=== PATIENT | male | born 1950 | race Caucasian/White ===

== ENCOUNTER 2023-05-20 23:49 | Emergency (ER) | payer OTHER ==
[2023-05-21] MEDS ORDERED: OXYMETAZOLINE HCL 0.05% 15ML NAS ONE (00:04)
[2023-05-21] MEDS ORDERED: HYDROCODONE/APAP 7.5/325 MG TAB ONE (00:18)
[2023-05-21] MEDS ORDERED: FENTANYL CITR 100 MCG/2 ML ONE (01:02)
[2023-05-21] MEDS ORDERED: SILVER NITRATE 1 APPL TOP ONE (01:44)
--- NOTE | 2023-05-21 03:43 | ER ---
Nurse's Notes [facility] Name: Malachi Diaz Age: 72 yrs Sex: Male : 1950 Arrival Date: 05/20/2023 Time: 23:49 Bed 7 Private MD: Diagnosis: Fall on same level, unspecified;Epistaxis Presentation: 05/20 00:10 Chief complaint: Patient states: I tripped going into the house and hit my nose on the vc1 door handle. I tried to get it to stop bleeding but it has been bleeding for about an hour and a half. Coronavirus screen: Vaccine status: Patient reports receiving the 2nd dose of the covid vaccine. Client denies travel out of the [place] in the last 14 days. At this time, the client does not indicate any symptoms associated with coronavirus-19. Ebola Screen: Patient negative for fever greater than or equal to 101.5 degrees Fahrenheit, and additional compatible Ebola Virus Disease symptoms Patient denies exposure to infectious person. Patient denies travel to an Ebola-affected area in the 21 days before illness onset. No symptoms or risks identified at this time. Initial Sepsis Screen: Does the patient meet any 2 criteria? No. Patient's initial sepsis screen is negative. Does the patient have a suspected source of infection? No. Patient's initial sepsis screen is negative. Risk Assessment: Do you want to hurt yourself or someone else? Patient reports no desire to harm self or others. Onset of symptoms was May 20, 2023 at 22:30. Care prior to arrival: None. Activity prior to arrival: None. Mechanism of Injury: Fall. 00:10 Method Of Arrival: Ambulatory vc1 00:10 Acuity: BRODIE 2 vc1 00:10 Mechanism of Injury: resulted from a fall. km8 Triage Assessment: 00:10 Neuro: Reports headache. km8 Historical: - Allergies: 00:15 No Known Allergies; vc1 - PMHx: 00:15 COPD; Hypertensive disorder; Hypercholesterolemia; Diabetes mellitus; Myocardial vc1 infarction; - PSHx: 00:15 Back; Cardiac Stents; vc1 - Immunization history:: Client reports receiving the 2nd dose of the Covid vaccine, Flu vaccine is up to date. - Social history:: Smoking status: Patient/guardian denies using tobacco, the patient reports quitting approximately 7 years ago. Screenin:10 [facility] ED Fall Risk Assessment (Adult) History of falling in the last 3 months, km8 including since admission Yes- single mechanical fall (1 pt) Confusion or Disorientation No (0 pts) Intoxicated or Sedated No (0 pts) Impaired Gait No (0 pts) Mobility Assist Device Used No (0 pt) Altered Elimination No (0 pt) Score/Fall Risk Level 0 - 2 = Low Risk Oriented to surroundings, Maintained a safe environment, Educated pt \T\ family on fall prevention, incl call for assistance when getting out of bed, Assessed \T\ reinforced patient's understanding of fall precautions. Abuse screen: Denies threats or abuse. Denies injuries from another. Nutritional screening: No deficits noted. Tuberculosis screening: No symptoms or risk factors identified. Assessment: 00:10 General: Appears uncomfortable, Behavior is cooperative, anxious. Pain: Complains of km8 pain in nose Pain currently is 9 out of 10 on a pain scale. Quality of pain is described as aching. Neuro: Level of Consciousness is awake, alert, obeys commands, Oriented to person, place, time, situation, Appropriate for age. Cardiovascular: Denies chest pain, shortness of breath, Patient's skin is warm and dry. Respiratory: Airway is patent Respiratory effort is even, unlabored, Respiratory pattern is regular, symmetrical. GI: No signs and/or symptoms were reported involving the gastrointestinal system. : No signs and/or symptoms were reported regarding the genitourinary system. EENT: Nares with bleeding noted. Derm: Skin is intact, is healthy with good turgor, Skin is dry, Skin is pink, warm \T\ dry. normal, Skin temperature is warm. Musculoskeletal: No signs and/or symptoms reported regarding the musculoskeletal system. Range of motion: intact in all extremities. 01:06 Reassessment: nose clip removed by MAKENZIE Wade. km8 01:19 Reassessment: left nare bleeding again, nasal clip re-applied. km8 03:00 Reassessment: Patient appears in no apparent distress at this time. No changes from km8 previously documented assessment. Patient and/or family updated on plan of care and expected duration. Pain level reassessed. Patient is alert, oriented x 3, equal unlabored respirations, skin warm/dry/pink. Vital Signs: 00:10 BP 167 / 79; Pulse 90; Resp 14; Temp 98.1; Pulse Ox 97% ; Weight 81.65 kg; Height 6 ft. vc1 0 in. ; Pain 9/10; 01:00 BP 184 / 83; Pulse 89; Resp 16; Pulse Ox 96% on R/A; km8 03:00 BP 136 / 85; Pulse 93; Resp 18; Pulse Ox 96% on R/A; km8 00:10 Body Mass Index 24.41 (81.65 kg, 182.88 cm) vc1 00:10 Pain Scale: Adult vc1 Cory Coma Score: 00:10 Eye Response: spontaneous(4). Motor Response: obeys commands(6). Verbal Response: km8 oriented(5). Total: 15. 00:10 Eye Response: spontaneous(4). Motor Response: obeys commands(6). Verbal Response: km8 oriented(5). Total: 15. ED Course: 05/19 23:57 Patient arrived in ED. gm2 05/20 00:00 Michela Marquez PA-C is PHCP. sb4 00:00 Chandana Arias DO is Attending Physician. sb4 00:08 Assist provider with nosebleed control using Afrin sprays, nasal clamp, Bleeding from km8 both nares. Performed by Amina Cartagena RN Patient tolerated well. 00:10 Patient has correct armband on for positive identification. Bed in low position. Call km8 light in reach. Side rails up X 1. Pulse ox on. NIBP on. 00:10 Arm band placed on right wrist. km8 00:10 Patient maintains SpO2 saturation greater than 95% on room air. km8 00:15 Triage completed. vc1 00:21 Amina Cartagena, RN is Primary Nurse. km8 00:43 Assisted to bathroom. km8 01:00 CT Facial Bones W/O Con In Process Unspecified. EDMS 01:00 CT Head C Spine In Process Unspecified. EDMS 01:11 Small towel given. oe 01:46 Patient did not have IV access during this emergency room visit. km8 03:43 Ruben Malik DO is Referral Physician. ms3 03:51 Provided Education on: d/c teaching. km8 Administered Medications: 00:08 Drug: Ernst-Synephrine Intranasal [place] 0.5 % 2 sprays Intranasal once Route: Intranasal; tm6 Site: both nares; 00:21 Drug: Hydrocodone-Acetaminophen PO (7.5 mg-325 mg) 1 tabs PO once Route: PO; km8 03:52 Follow up: Response: No adverse reaction; Pain is decreased km8 01:07 Drug: fentaNYL (PF) IM 50 mcg IM once Route: IM; Site: left deltoid; km8 03:52 Follow up: Response: No adverse reaction; Pain is decreased km8 Medication: 01:45 VIS not applicable for this client. km8 Outcome: 03:43 Discharge ordered by . ms3 03:52 Discharged to home ambulatory, km8 03:52 Condition: good 03:52 Discharge instructions given to patient, Instructed on discharge instructions, follow up and referral plans. Demonstrated understanding of instructions, follow-up care, 03:52 Patient left the ED. km8 Signatures: Dispatcher [employer] EDMS Johnny Suero Marcus, DO DO ms3 Pamela Tse RN RN vc1 Michela Marquez PA-C PA-C sb4 Puja Lazaro gm2 Amina Cartagena, URIEL RN km8 Debby Hoffman RN RN tm6 Corrections: (The following items were deleted from the chart) 01:21 00:08 Assist provider with nosebleed control using Afrin sprays, nasal clamp, 8 8 47 01:45 Provided Education on: d/c teaching. [facility] 47 01:45 Condition: good [facility] 47 01:45 Discharged to home ambulatory, with significant other, [facility] 47 01:45 Discharge instructions given to patient, Instructed on discharge instructions, 8 follow up and referral plans. Demonstrated understanding of instructions, follow-up care, 8
--- NOTE | 2023-05-21 03:44 | EDPHYS ---
Physician Documentation [facility] Name: Malachi Diaz Age: 72 yrs Sex: Male : 1950 Arrival Date: 05/20/2023 Time: 23:49 Bed 7 Private MD: ED Physician Chandana Arias HPI: 05/20 00:07 This 72 yrs old Male presents to ER via Unassigned with complaints of Fall Injury, Nose sb4 Bleed. 00:07 patient states he was walking and tripped on a step, fell forward and hit somewhere on sb4 his head/face, is unsure. states his nose immediately started bleeding. he is on plavix and has been consuming etoh tonight. denies any LOC. has been bleeding for about an hour at home. complains of headache and nose pain. Historical: - Allergies: 00:15 No Known Allergies; vc1 - PMHx: 00:15 COPD; Hypertensive disorder; Hypercholesterolemia; Diabetes mellitus; Myocardial vc1 infarction; - PSHx: 00:15 Back; Cardiac Stents; vc1 - Immunization history:: Client reports receiving the 2nd dose of the Covid vaccine, Flu vaccine is up to date. - Social history:: Smoking status: Patient/guardian denies using tobacco, the patient reports quitting approximately 7 years ago. ROS: 00:07 Constitutional: Negative for fever, chills, and weight loss, sb4 00:07 ENT: Positive for nose bleed, 00:07 Neuro: Positive for headache, 00:07 All other systems are negative, Exam: 00:07 Constitutional: This is a well developed, well nourished patient who is awake, alert, sb4 and in no acute distress. Head/Face: Normocephalic, atraumatic. Eyes: Extra-ocular motions intact. Periorbital areas with no swelling, redness, or edema. Cardiovascular: Regular rate and rhythm with a normal S1 and S2. Respiratory: Lungs have equal breath sounds bilaterally, clear to auscultation and percussion. No rales, rhonchi or wheezes noted. No increased work of breathing, no retractions or nasal flaring. Abdomen/GI: Soft, non-tender, no distension. Skin: Warm, dry with normal turgor. Normal color with no rashes, no lesions, and no evidence of cellulitis. MS/ Extremity: Pulses equal, no cyanosis. Neurovascular intact. Full, normal range of motion. Neuro: Awake and alert, GCS 15, oriented to person, place, time, and situation. Motor strength 5/5 in all extremities. Sensory grossly intact. 00:07 ENT: Nose: Nasal septum: is midline, no septal hematoma appreciated, bleeding, is seen from the left nare, and is moderate, Vital Signs: 00:10 BP 167 / 79; Pulse 90; Resp 14; Temp 98.1; Pulse Ox 97% ; Weight 81.65 kg; Height 6 ft. vc1 0 in. ; Pain 9/10; 01:00 BP 184 / 83; Pulse 89; Resp 16; Pulse Ox 96% on R/A; km8 03:00 BP 136 / 85; Pulse 93; Resp 18; Pulse Ox 96% on R/A; km8 00:10 Body Mass Index 24.41 (81.65 kg, 182.88 cm) vc1 00:10 Pain Scale: Adult vc1 Cory Coma Score: 00:10 Eye Response: spontaneous(4). Motor Response: obeys commands(6). Verbal Response: km8 oriented(5). Total: 15. 00:10 Eye Response: spontaneous(4). Motor Response: obeys commands(6). Verbal Response: km8 oriented(5). Total: 15. Procedures: 01:49 Epistaxis treatment: Copious amount of bleeding noted from left nare. Treated using sb4 Oxymetazoline sprays, cauterization, silver nitrate, direct pressure, nasal clamp, Bleeding continues. MDM: 00:00 Patient medically screened. sb4 01:30 Transition of care: Care assumed from Michela Marquez PA-C. ms3 03:44 Differential diagnosis: abrasion, closed head injury, contusion, fracture, sprain, ms3 strain. Data reviewed: vital signs, nurses notes, radiologic studies, CT scan, and as a result, I will discharge patient. I considered the following discharge prescriptions or medication management in the emergency department Medications were administered in the Emergency Department. See MAR. Independent interpretation of the following test(s) in the Emergency Department CT Scan: My interpretation is CT Head without contrast images reviewed by me do not reveal ICH. Counseling: I had a detailed discussion with the patient and/or guardian regarding the historical points, exam findings, and any diagnostic results supporting the discharge/admit diagnosis, radiology results, the need for outpatient follow up, to return to the emergency department if symptoms worsen or persist or if there are any questions or concerns that arise at home. Special discussion: I discussed with the patient/guardian in detail that at this point there is no indication for admission to the hospital. It is understood, however, that if the symptoms persist or worsen the patient needs to return immediately for re-evaluation. ED course: After Ernst-Synephrine and anterior nasal pressure epistaxis has resolved. Patient to follow-up with primary care physician 2 to 3 days. Patient understands and agrees with plan. All questions were answered. Return precautions discussed include worsening symptoms, or any other concerns.. 05/20 00:07 Order name: CT Facial Bones W/O Con sb4 05/20 00:07 Order name: CT Head C Spine sb4 Administered Medications: 00:08 Drug: Ernst-Synephrine Intranasal [place] 0.5 % 2 sprays Intranasal once Route: Intranasal; tm6 Site: both nares; 00:21 Drug: Hydrocodone-Acetaminophen PO (7.5 mg-325 mg) 1 tabs PO once Route: PO; km8 03:52 Follow up: Response: No adverse reaction; Pain is decreased km8 01:07 Drug: fentaNYL (PF) IM 50 mcg IM once Route: IM; Site: left deltoid; km8 03:52 Follow up: Response: No adverse reaction; Pain is decreased km8 Disposition: 03:45 Co-signature as Attending Physician, Chandana Arias DO. ms3 17:00 Chart complete. sb4 Disposition Summary: 05/21/23 03:43 Discharge Ordered Notes: Location: Home ms3 Condition: Stable ms3 Diagnosis - Fall on same level, unspecified ms3 - Epistaxis ms3 Followup: ms3 - With: Ruben Malik DO - When: 2 - 3 days - Reason: Recheck today's complaints Discharge Instructions: - Discharge Summary Sheet ms3 - Nosebleed, Adult ms3 Forms: - Medication Reconciliation Form ms3 - Thank You Letter ms3 - Antibiotic Education ms3 - Prescription Opioid Use ms3 - Patient Portal Instructions ms3 - Leadership Thank You Letter ms3 Signatures: Dispatcher [employer] EDChandana Arce DO DO ms3 Pamela Tse RN RN vc1 Michela Marquez, CHUCKY LOCKE sb4 Amina Cartagena, RN RN km8 Debby Hoffman, RN RN tm6
[2023-05-21 04:04] VITALS: BP 136/85; TEMP 98.1; O2SAT 96
--- NOTE | 2023-05-22 12:09 | RAD REPORT ---
EXAM DESCRIPTION: CT - Head C Spine Mpr Wo Con - 05/21/2023 6:24 am CLINICAL HISTORY: Male, 72 years old, FALL, TRAUMA COMPARISON: Concurrent CT face TECHNIQUE: CT acquisition of the head without contrast. CT acquisition of the cervical spine without contrast. Coronal and sagittal reformats provided. This exam was performed according to departmental dose-optimization program which includes automated exposure control, adjustment of the mA and/or kV according to patient size, and/or use of iterative reconstruction technique. FINDINGS: SUPPORTIVE DEVICES: None. HEAD: Brain: No evidence of hemorrhage, mass effect, or cerebral edema. CSF Spaces: Unremarkable. Skull: The calvarium is intact. Soft tissue: No evidence of scalp or soft tissue injury. Other: See separate report of CT face for detailed findings; anterior and septal nasal bone fractures are present. Prior lens surgery, otherwise unremarkable orbits. Frothy material within the nasophary nx, ethmoid and left maxillary sinuses. CERVICAL SPINE: Morphology: Normal vertebral body heights. No identified fracture. Alignment: No traumatic listhesis. Craniocervical Junction: Intact. Disc Levels: Moderate to severe multilevel spondylosis with at least moderate foraminal stenosis pres ent at multiple levels. No evidence of critical spinal canal stenosis. Other: No acute finding of the neck soft tissues or imaged lung apices. Paraseptal emphysema in the l maria guadalupe apices with prominent apical capping and partially calcified plaques. IMPRESSION: 1. No acute intracranial abnormality. 2. Nasal bone fractures better evaluated on concurrent CT face. 3. No acute cervical osseous abnormality. 4. Chronic and incidental findings above. Electronically signed by: Zachary Vicente MD 05/21/2023 01:15 AM [employer] Due to temporary technical issues with the PACS/Fluency reporting system, reports are being signed by the in house radiologist without review as a courtesy to ensure prompt reporting. The interpreting r adiologist is fully responsible for the content of the report.
--- NOTE | 2023-05-22 12:13 | RAD REPORT ---
EXAM DESCRIPTION: CT - Facial Bones W/ Mpr - 05/21/2023 6:24 am CLINICAL HISTORY: The patient is 72 years old and is Male; FACIAL PAIN, NOSE BLEED TECHNIQUE: Axial computed tomography images of the face without intravenous contrast. Sagittal and coronal reformatted images were created and reviewed. This CT exam was performed using one or more of the following dose reduction techniques: automated exposure control, adjustment of the mA and/o r kV according to patient size, and/or use of iterative reconstruction technique. COMPARISON: No relevant prior studies available. FINDINGS: Bones/joints: No acute fracture. Soft tissues: Unremarkable. Orbits: Unremarkable. Sinuses: See below. Nasal cavity/septum: Complete opacification of the left nasal passage and partial opacification o f the left ethmoid air cells. IMPRESSION: 1. No acute fracture. 2. Complete opacification of the left nasal passage and partial opacification of the left ethmoid a ir cells. Electronically signed by: Pop Little MD 05/21/2023 01:27 AM [employer] Due to temporary technical issues with the PACS/Fluency reporting system, reports are being signed by the in house radiologist without review as a courtesy to ensure prompt reporting. The interpreting r adiologist is fully responsible for the content of the report.
== END 2023-05-21 03:52 | disposition home or self-care (01) ==
LOC: ER 23:49
PROC: 093K7ZZ Control Bleeding in Nasal Mucosa and Soft Tissue, Via Natural or Artificial Opening (ICD-10-PCS; principal; 2023-05-20)
DX: R04.0 Epistaxis (principal); W01.198A Fall on same level from slipping, tripping and stumbling with subsequent striking against other object, initial encounter; Y92.018 Other place in single-family (private) house as the place of occurrence of the external cause; I10 Essential (primary) hypertension; E11.9 Type 2 diabetes mellitus without complications; J44.9 Chronic obstructive pulmonary disease, unspecified; E78.00 Pure hypercholesterolemia, unspecified; I25.2 Old myocardial infarction; Z95.5 Presence of coronary angioplasty implant and graft; Z87.891 Personal history of nicotine dependence
CPT/HCPCS: 30901; 70450; 70486; 72125; 76377; 96372; 99285